=== PATIENT | male | born 1990 | race Hispanic/Latino ===

== ENCOUNTER 2016-12-18 21:11 | Emergency (ER) | payer BC, SELFPAY ==
[2016-12-18] MEDS ORDERED: Lidocaine 1% 20 ML MDV ONE (21:33)
[2016-12-18] MEDS ORDERED: Triple Antibiotic Oint 1 GM Packet ONE (22:28)
== END 2016-12-18 23:00 | disposition home or self-care (01) ==
LOC: NAV ERS 21:11
DX: S91.114A Laceration without foreign body of right lesser toe(s) without damage to nail, initial encounter (principal); S91.111A Laceration without foreign body of right great toe without damage to nail, initial encounter; E78.5 Hyperlipidemia, unspecified; E78.00 Pure hypercholesterolemia, unspecified; W25.XXXA Contact with sharp glass, initial encounter
CPT/HCPCS: 12002; J2001